=== PATIENT | female | born 1935 | race African-American/Black ===

== ENCOUNTER → 2019-12-15 | Outpatient (CLI) | payer MEDICARE, BC | END | disposition home or self-care (01) | LOC: LAB 13:59 | PROVIDERS: ATTEND Surgery | DX: Z01.812 Encounter for preprocedural laboratory examination (principal); Z20.828 Contact with and (suspected) exposure to other viral communicable diseases | CPT/HCPCS: C9803; U0003 ==

== ENCOUNTER 2019-12-17 05:21 | Day surgery (SDC) | payer MEDICARE, BC ==
[~2019-12-17] VITALS: Ht 162.6 cm; Wt 59.9 kg
[2019-12-17] MEDS ORDERED: LACTATED RINGERS 1,000 ML IV SCH (05:30)
[2019-12-17] MEDS ORDERED: SKIN ADHESIVE 0.7 GM EA TOP ONE (06:20)
[2019-12-17] MEDS ORDERED: BUPIVACAINE HCL 0.5% (5MG/ML) 50ML ONE (06:21)
[2019-12-17] MEDS ORDERED: FENTANYL CITRATE/PF 50MCG/ML 2ML VIAL ONE (06:48)
[2019-12-17] MEDS ORDERED: PROPOFOL 200MG/20ML VIAL IV ONE (06:49)
[2019-12-17] MEDS ORDERED: MIDAZOLAM HCL 2 MG/2 ML VIAL ONE (06:49)
[2019-12-17] MEDS ORDERED: DEXAMETHASONE 4MG/ML 1ML VIAL ONE (07:35)
[2019-12-17] MEDS ORDERED: ONDANSETRON HCL 4MG/2ML INJ ONE (07:35)
[2019-12-17] MEDS ORDERED: MEPERIDINE HCL/PF 25MG/ML CPJ IV PRN (07:45)
[2019-12-17] MEDS ORDERED: HYDROMORPHONE HCL/PF 2MG/ML CPJ IV PRN (07:45)
[2019-12-17] MEDS ORDERED: ONDANSETRON HCL 4MG/2ML INJ IV PRN (07:45)
[2019-12-17] MEDS ORDERED: LABETALOL 5MG/ML SYR 20 MG/4 ML SYRINGE IV PRN (07:45)
[2019-12-30] MEDS ORDERED: LEVO50TA PO (13:30)
[2019-12-30] MEDS ORDERED: MULT-1146 PO (13:30)
[2019-12-30] MEDS ORDERED: OLME20TA13 PO (13:30)
[2019-12-30] MEDS ORDERED: ASPI-1497 PO (13:30)
[2019-12-30] MEDS ORDERED: VITAMIN B12 PO (13:30)
[2019-12-30] MEDS ORDERED: HYDR12.54 PO (13:30)
[2019-12-30] MEDS ORDERED: COD1CAPS16 PO (13:30)
[2019-12-30] MEDS ORDERED: CALCIUM CALTRATE PO (13:30)
== END 2019-12-17 09:05 | disposition home or self-care (01) ==
LOC: OR 05:21
PROVIDERS: ATTEND Surgery
DX: N63.10 Unspecified lump in the right breast, unspecified quadrant (principal); C50.911 Malignant neoplasm of unspecified site of right female breast; I10 Essential (primary) hypertension; E03.9 Hypothyroidism, unspecified; E11.9 Type 2 diabetes mellitus without complications; Z79.82 Long term (current) use of aspirin; Z79.84 Long term (current) use of oral hypoglycemic drugs; Z98.890 Other specified postprocedural states; Z88.1 Allergy status to other antibiotic agents; Z88.6 Allergy status to analgesic agent; Z88.8 Allergy status to other drugs, medicaments and biological substances
CPT/HCPCS: 19120; 88307; 88331; J1100; J2250; J2405; J2704; J3010; J3490

== ENCOUNTER → 2019-12-29 | Outpatient (CLI) | payer MEDICARE, BC ==
[~2019-12-29] MED LIST: ASPI-1497 PO; CALCIUM CALTRATE PO; COD1CAPS16 PO; HYDR12.54 PO; LEVO50TA PO; MULT-1146 PO; OLME20TA13 PO; VITAMIN B12 PO
== END | disposition home or self-care (01) ==
LOC: LAB 12:50
PROVIDERS: ATTEND Surgery
DX: Z01.812 Encounter for preprocedural laboratory examination (principal); Z20.828 Contact with and (suspected) exposure to other viral communicable diseases
CPT/HCPCS: C9803; U0003

== ENCOUNTER → 2019-12-31 | Day surgery (SDC) | payer MEDICARE, BC ==
[~2019-12-31] VITALS: Ht 162.6 cm; Wt 59.9 kg
[~2019-12-31] MED LIST changes: +BUPIVACAINE HCL 0.5% (5MG/ML) 50ML ONE; +FENTANYL CITRATE/PF 50MCG/ML 2ML VIAL IV PRN; +LACTATED RINGERS 1,000 ML IV SCH; +MEPERIDINE HCL/PF 25MG/ML CPJ IV PRN; +METHYLENE BLUE 50 MG/10 ML AMP IV ONE; +METOCLOPRAMIDE HCL 10MG/2ML VIAL IV ONE; +SKIN ADHESIVE 0.7 GM EA TOP ONE
== END | disposition home or self-care (01) ==
LOC: OR 06:28
PROVIDERS: ATTEND Surgery
DX: C50.911 Malignant neoplasm of unspecified site of right female breast (principal); I10 Essential (primary) hypertension; E03.9 Hypothyroidism, unspecified; E11.9 Type 2 diabetes mellitus without complications; Z88.5 Allergy status to narcotic agent; Z88.8 Allergy status to other drugs, medicaments and biological substances; Z88.1 Allergy status to other antibiotic agents; Z79.899 Other long term (current) drug therapy; Z98.890 Other specified postprocedural states; Z79.82 Long term (current) use of aspirin
CPT/HCPCS: 38525; 78195; 88305; 88331; J0690; J1100; J2405; J2704; J3010; J3490; Q9968

== ENCOUNTER 2020-01-05 08:56 | Emergency (ER) | payer MEDICARE, BC ==
[~2020-01-05] VITALS: Ht 162.6 cm; Wt 60.0 kg
[~2020-01-05 08:56] MED LIST changes: -BUPIVACAINE HCL 0.5% (5MG/ML) 50ML ONE; -FENTANYL CITRATE/PF 50MCG/ML 2ML VIAL IV PRN; -LACTATED RINGERS 1,000 ML IV SCH; -MEPERIDINE HCL/PF 25MG/ML CPJ IV PRN; -METHYLENE BLUE 50 MG/10 ML AMP IV ONE; -METOCLOPRAMIDE HCL 10MG/2ML VIAL IV ONE; -SKIN ADHESIVE 0.7 GM EA TOP ONE
[2020-01-05 09:36] LABS: EOSINOPHILS % 0.7 % (0.0-5.0); HEMATOCRIT. 34.9 % (36.0-48.0); HEMOGLOBIN. 11.1 g/dL (12.0-16.0); LYMPHOCYTES % 9.7 % (20.0-50.0); MEAN CORPUSCULAR HEMOGLOBIN 23.8 pg (28.0-32.0); MEAN PLATELET VOLUME 7.3 fl (7.4-10.4); MONOCYTES % 6.3 % (2.0-8.0); NEUTROPHILS % 82.3 % (40.0-76.0); PLATELET 501 x1000/uL (130-400); RED BLOOD CELL COUNT 4.65 mill/uL (4.2-5.4); RED CELL DISTRIBUTION WIDTH 14.9 % (11.6-14.6)
[2020-01-05 09:45] LABS: PROTHROMBIN TIME 10.2 sec (9.6-11.0)
[2020-01-05 09:54] LABS: CHLORIDE 100 mEq/L (98-107)
[2020-01-05] MEDS ORDERED: LIDOCAINE HCL/PF 1% 10 MG/ML 5ML VIAL IJ ONE (10:30)
[2020-01-05 11:11] VITALS: BP 150/83
== END 2020-01-05 11:14 | disposition home or self-care (01) ==
LOC: ER 08:56
DX: T81.89XA Other complications of procedures, not elsewhere classified, initial encounter (principal); I10 Essential (primary) hypertension; Z88.5 Allergy status to narcotic agent; Z88.3 Allergy status to other anti-infective agents; Z85.3 Personal history of malignant neoplasm of breast; Z98.890 Other specified postprocedural states; Y83.8 Other surgical procedures as the cause of abnormal reaction of the patient, or of later complication, without mention of misadventure at the time of the procedure; Y92.018 Other place in single-family (private) house as the place of occurrence of the external cause
CPT/HCPCS: 36415; 71045; 80053; 85025; 85610; 86850; 86900; 86901; 99284; J3490